=== PATIENT | male | born 1945 | race Caucasian/White ===

== ENCOUNTER → 2017-03-11 | Outpatient (CLI) | payer MEDICARE, OTHER ==
[~2017-03-11] MED LIST: ASPI-556 PO; ATOR10TA69 PO; LEVO100T4 PO; LORA1TAB3 PO; SYMB8060 IH; TAMS0.4C32 PO; TRAM50TA4 PO
== END | disposition home or self-care (01) ==
LOC: RADPV 13:57
PROVIDERS: ATTEND General Practice
DX: R10.11 Right upper quadrant pain (principal); R10.13 Epigastric pain
CPT/HCPCS: 76700

== ENCOUNTER → 2018-05-04 | Outpatient (CLI) | payer MEDICARE, OTHER | END | disposition home or self-care (01) | LOC: RADMN 12:35 | PROVIDERS: ATTEND General Practice | DX: I67.82 Cerebral ischemia (principal); J34.1 Cyst and mucocele of nose and nasal sinus; H91.92 Unspecified hearing loss, left ear | CPT/HCPCS: 70551 ==

== ENCOUNTER 2018-07-05 15:37 | Emergency (ER) | payer MEDICARE, OTHER ==
[~2018-07-05] VITALS: Ht 167.6 cm; Wt 77.7 kg
[2018-07-05] MEDS: FLUTICASONE PROPIONATE 50 MCG/SPRAY 16 GM NASAL SPRAY NASAL ONE (19:01)
[2018-07-05] MEDS: LORATADINE 10 MG TABLET PO ONE (19:01)
[2018-07-05] MEDS: BENZONATATE 100 MG CAPSULE PO ONE (19:01)
[2018-07-05] MEDS: BENZOCAINE/MENTHOL LOZENGE PO ONE (19:01)
[2018-07-05] MEDS: NEOMYCIN/POLYMYXIN B/HYDROCORT 10 ML OTIC SOLUTION AU ONE (19:02)
[2018-07-05 20:00] VITALS: BP 130/88
== END 2018-07-05 20:29 | disposition home or self-care (01) ==
LOC: EMS 15:38
DX: J06.9 Acute upper respiratory infection, unspecified (principal); J30.9 Allergic rhinitis, unspecified; H60.93 Unspecified otitis externa, bilateral; J45.909 Unspecified asthma, uncomplicated; K21.9 Gastro-esophageal reflux disease without esophagitis; I10 Essential (primary) hypertension; E78.00 Pure hypercholesterolemia, unspecified; F41.9 Anxiety disorder, unspecified; M19.90 Unspecified osteoarthritis, unspecified site; Z87.891 Personal history of nicotine dependence; Z88.0 Allergy status to penicillin; Z88.5 Allergy status to narcotic agent; Z79.82 Long term (current) use of aspirin

== ENCOUNTER 2018-07-07 15:55 | Emergency (ER) | payer MEDICARE, OTHER | END 2018-07-07 16:22 | disposition left against medical advice (07) | LOC: EMS 15:57 | DX: Z53.21 Procedure and treatment not carried out due to patient leaving prior to being seen by health care provider (principal) ==

== ENCOUNTER → 2018-09-13 | Outpatient (CLI) | payer MEDICARE, OTHER ==
[~2018-09-13] MED LIST changes: +IOVERSOL 320 MG/ML 100 ML VIAL ONE; +SODIUM CHLORIDE 0.9% 100 ML ONE
== END | disposition home or self-care (01) ==
LOC: RADMN 12:58
PROVIDERS: ATTEND General Practice
DX: J43.8 Other emphysema (principal); J40 Bronchitis, not specified as acute or chronic; J98.4 Other disorders of lung
CPT/HCPCS: 71260; J7050; Q9967

== ENCOUNTER 2018-12-12 22:43 | Emergency (ER) | payer MEDICARE, OTHER ==
[~2018-12-12] VITALS: Ht 165.1 cm; Wt 81.8 kg
[~2018-12-12 22:43] MED LIST changes: -IOVERSOL 320 MG/ML 100 ML VIAL ONE; -SODIUM CHLORIDE 0.9% 100 ML ONE
[2018-12-13 03:00] VITALS: BP 130/75
[2018-12-13] MEDS ORDERED: KETOROLAC TROMETHAMINE 30 MG/ML VIAL IM ONE (03:15)
== END 2018-12-13 04:01 | disposition home or self-care (01) ==
LOC: EMS 22:43
DX: S43.101A Unspecified dislocation of right acromioclavicular joint, initial encounter (principal); F41.9 Anxiety disorder, unspecified; J45.909 Unspecified asthma, uncomplicated; K21.9 Gastro-esophageal reflux disease without esophagitis; E78.00 Pure hypercholesterolemia, unspecified; I10 Essential (primary) hypertension; Z87.891 Personal history of nicotine dependence; Z88.0 Allergy status to penicillin; Z88.5 Allergy status to narcotic agent; Z79.82 Long term (current) use of aspirin; W19.XXXA Unspecified fall, initial encounter; Y93.89 Activity, other specified; Y92.89 Other specified places as the place of occurrence of the external cause; Y99.8 Other external cause status
CPT/HCPCS: 73030; 96372; 99283; J1885

== ENCOUNTER → 2020-12-31 | Outpatient (CLI) | payer MEDICARE, OTHER ==
[~2020-12-31] MED LIST changes: +IOHEXOL 350 MG/ML 100 ML VIAL ONE; +SODIUM CHLORIDE 0.9% 100 ML ONE; +TAMS-13 PO; -TAMS0.4C32 PO
== END | disposition home or self-care (01) ==
LOC: RADMN 08:39
PROVIDERS: ATTEND General Practice
DX: K57.30 Diverticulosis of large intestine without perforation or abscess without bleeding (principal); K40.90 Unilateral inguinal hernia, without obstruction or gangrene, not specified as recurrent; K44.9 Diaphragmatic hernia without obstruction or gangrene; I51.7 Cardiomegaly; I25.10 Atherosclerotic heart disease of native coronary artery without angina pectoris; N32.3 Diverticulum of bladder; J43.8 Other emphysema; J98.4 Other disorders of lung; N28.1 Cyst of kidney, acquired; I70.0 Atherosclerosis of aorta; N40.0 Benign prostatic hyperplasia without lower urinary tract symptoms; M50.321 Other cervical disc degeneration at C4-C5 level; M47.812 Spondylosis without myelopathy or radiculopathy, cervical region; M46.02 Spinal enthesopathy, cervical region; M51.34 Other intervertebral disc degeneration, thoracic region; M51.37 Other intervertebral disc degeneration, lumbosacral region; J92.9 Pleural plaque without asbestos
CPT/HCPCS: 71260; 72040; 72072; 72100; 72193; 74160; J7050; Q9967

== ENCOUNTER → 2021-09-24 | Outpatient (CLI) | payer MEDICARE, MEDICAID ==
[~2021-09-24] MED LIST changes: -IOHEXOL 350 MG/ML 100 ML VIAL ONE; -SODIUM CHLORIDE 0.9% 100 ML ONE
== END | disposition home or self-care (01) ==
LOC: RADPV 09:16
PROVIDERS: ATTEND General Practice
DX: K80.20 Calculus of gallbladder without cholecystitis without obstruction (principal); K83.8 Other specified diseases of biliary tract; R10.10 Upper abdominal pain, unspecified
CPT/HCPCS: 76700

== ENCOUNTER → 2021-10-28 | Outpatient (CLI) | payer MEDICARE, MEDICAID ==
[~2021-10-28] MED LIST changes: +BARIUM SULFATE 0.1% SUSPENSION 450 ML BOTTLE ONE; +IOHEXOL 350 MG/ML 150 ML VIAL ONE; +SODIUM CHLORIDE 0.9% 100 ML ONE
== END | disposition home or self-care (01) ==
LOC: RADMN 08:57
PROVIDERS: ATTEND General Practice
DX: N32.3 Diverticulum of bladder (principal); K57.30 Diverticulosis of large intestine without perforation or abscess without bleeding; K40.90 Unilateral inguinal hernia, without obstruction or gangrene, not specified as recurrent; N43.3 Hydrocele, unspecified; J43.9 Emphysema, unspecified; J47.9 Bronchiectasis, uncomplicated; K44.9 Diaphragmatic hernia without obstruction or gangrene; R91.8 Other nonspecific abnormal finding of lung field; R59.0 Localized enlarged lymph nodes; M47.814 Spondylosis without myelopathy or radiculopathy, thoracic region; R10.9 Unspecified abdominal pain; K80.20 Calculus of gallbladder without cholecystitis without obstruction
CPT/HCPCS: 71260; 74160; 72193; Q9967; J7050

== ENCOUNTER 2022-02-27 15:09 | Emergency (ER) | payer MEDICARE, OTHER ==
[~2022-02-27] VITALS: Ht 160 cm; Wt 81.8 kg
[~2022-02-27 15:09] MED LIST changes: -BARIUM SULFATE 0.1% SUSPENSION 450 ML BOTTLE ONE; -IOHEXOL 350 MG/ML 150 ML VIAL ONE; -SODIUM CHLORIDE 0.9% 100 ML ONE
[2022-02-27 15:24] VITALS: BP 141/91
[2022-02-27] MEDS ORDERED: PRED-554 PO (19:52)
[2022-02-27] MEDS ORDERED: BENZ-70 PO (19:52)
== END 2022-02-27 17:04 | disposition left against medical advice (07) ==
LOC: EMS 15:22
DX: Z53.21 Procedure and treatment not carried out due to patient leaving prior to being seen by health care provider (principal)

== ENCOUNTER 2022-02-27 17:11 | Emergency (ER) | payer MEDICARE, OTHER ==
[~2022-02-27] VITALS: Ht 165.1 cm; Wt 81.8 kg
[2022-02-27 18:30] LABS: COVID AG,FIA SOURCE NASOPHARYNGEAL
[2022-02-27 18:46] LABS: RAPID GROUP A STREP NEGATIVE (NEGATIVE)
[2022-02-27 18:52] LABS: INFLUENZA TYPE A NEGATIVE FOR TYPE A (NEGATIVE); INFLUENZA TYPE B NEGATIVE FOR TYPE B (NEGATIVE)
[2022-02-27] MEDS ORDERED: PRED-554 PO (19:52)
[2022-02-27] MEDS ORDERED: BENZ-70 PO (19:52)
[2022-02-27] MEDS ORDERED: IPRATROPIUM BROMIDE 0.5 MG/2.5 ML NEB SOLUTION NEB ONE (20:00)
[2022-02-27] MEDS ORDERED: ALBUTEROL SULFATE 2.5 MG/0.5 ML NEB SOLUTION NEB ONE (20:00)
[2022-02-27] MEDS ORDERED: PredniSONE 20 MG TABLET PO ONE (20:00)
[2022-02-27 20:30] VITALS: BP 132/87
== END 2022-02-27 22:25 | disposition home or self-care (01) ==
LOC: EMS 20:11
DX: J45.901 Unspecified asthma with (acute) exacerbation (principal); Z20.822 Contact with and (suspected) exposure to COVID-19; B34.9 Viral infection, unspecified; E78.00 Pure hypercholesterolemia, unspecified; F41.9 Anxiety disorder, unspecified; I10 Essential (primary) hypertension; K21.9 Gastro-esophageal reflux disease without esophagitis; N41.9 Inflammatory disease of prostate, unspecified; N40.0 Benign prostatic hyperplasia without lower urinary tract symptoms; R06.02 Shortness of breath; Z87.81 Personal history of (healed) traumatic fracture; Z88.0 Allergy status to penicillin
CPT/HCPCS: 99284; 71045; 87426; 87430; 87804; 94640; J7512; C9803; J7613

== ENCOUNTER 2022-05-11 11:55 | Emergency (ER) | payer MEDICARE, OTHER ==
[~2022-05-11] VITALS: Ht 162.6 cm; Wt 79.5 kg
[~2022-05-11 11:55] MED LIST changes: +BENZ-227 PO; +PRED-554 PO
[2022-05-11] MEDS ORDERED: DOXY-354 PO (14:40)
[2022-05-11 16:01] VITALS: BP 148/80
== END 2022-05-11 16:04 | disposition home or self-care (01) ==
LOC: EMS 12:24
DX: H66.91 Otitis media, unspecified, right ear (principal); F41.9 Anxiety disorder, unspecified; J45.909 Unspecified asthma, uncomplicated; E78.00 Pure hypercholesterolemia, unspecified; I10 Essential (primary) hypertension; M19.90 Unspecified osteoarthritis, unspecified site; N40.0 Benign prostatic hyperplasia without lower urinary tract symptoms; Z87.891 Personal history of nicotine dependence; Z98.890 Other specified postprocedural states; Z88.0 Allergy status to penicillin; Z88.5 Allergy status to narcotic agent
CPT/HCPCS: 99283

== ENCOUNTER → 2022-11-18 | Outpatient (CLI) | payer MEDICARE, OTHER ==
[~2022-11-18] MED LIST changes: +DOXY-354 PO
== END | disposition still patient (30) ==
LOC: RADMN 14:14
PROVIDERS: ATTEND General Practice
DX: M47.814 Spondylosis without myelopathy or radiculopathy, thoracic region (principal); R05.9 Cough, unspecified; M50.31 Other cervical disc degeneration, high cervical region; M47.817 Spondylosis without myelopathy or radiculopathy, lumbosacral region; M51.37 Other intervertebral disc degeneration, lumbosacral region; J92.9 Pleural plaque without asbestos
CPT/HCPCS: 71046; 72040; 72072; 72100

== ENCOUNTER 2022-12-29 13:01 | Emergency (ER) | payer MEDICARE, OTHER ==
[~2022-12-29] VITALS: Ht 165.1 cm; Wt 77.3 kg
[~2022-12-29 13:01] MED LIST changes: -TAMS-13 PO; +TAMS0.4C34 PO
[2022-12-29 13:06] VITALS: BP 143/79; PULSE 82; RESP 18; TEMP 97.9
[2022-12-29] MEDS ORDERED: BACITRACIN 0.9 GM PACKET OINTMENT TP ONE (15:00)
[2022-12-29] MEDS ORDERED: HYDROGEN PEROXIDE 118 ML SOLUTION TP ONE (15:00)
[2022-12-29] MEDS ORDERED: DUTA0.5C38 PO (15:04)
[2022-12-29] MEDS ORDERED: ALBU18HF7 IH (15:04)
[2022-12-29] MEDS ORDERED: ESCI-8 PO (15:04)
[2022-12-29] MEDS ORDERED: FAMO20 PO (15:04)
[2022-12-29] MEDS ORDERED: ATOR40TA71 PO (15:04)
[2022-12-29] MEDS ORDERED: FLUT16SP NASAL (15:04)
[2022-12-29] MEDS ORDERED: LEVO25TA9 PO (15:04)
[2022-12-29] MEDS ORDERED: ATEN-73 PO (15:04)
[2022-12-29] MEDS ORDERED: TRAM-559 PO (15:04)
[2022-12-29] MEDS ORDERED: CHOL200074 PO (15:04)
[2022-12-29] MEDS ORDERED: POLY510P31 PO (15:04)
[2022-12-29] MEDS ORDERED: FLUT1BLS3 IH (15:04)
[2022-12-29] MEDS ORDERED: BACI28.410 TP (15:43)
== END 2022-12-29 15:50 | disposition home or self-care (01) ==
LOC: EMS 13:04
DX: S51.051A Open bite, right elbow, initial encounter (principal); F41.9 Anxiety disorder, unspecified; M19.90 Unspecified osteoarthritis, unspecified site; J45.909 Unspecified asthma, uncomplicated; E78.00 Pure hypercholesterolemia, unspecified; I10 Essential (primary) hypertension; N40.0 Benign prostatic hyperplasia without lower urinary tract symptoms; Z87.891 Personal history of nicotine dependence; Z98.890 Other specified postprocedural states; Z88.0 Allergy status to penicillin; Z88.5 Allergy status to narcotic agent; W54.0XXA Bitten by dog, initial encounter; Y93.89 Activity, other specified; Y92.89 Other specified places as the place of occurrence of the external cause; Y99.8 Other external cause status
CPT/HCPCS: 82962; 99283

== ENCOUNTER 2023-02-12 11:29 | Emergency (ER) | payer MEDICARE, OTHER ==
[~2023-02-12] VITALS: Ht 167.6 cm; Wt 80.9 kg
[2023-02-12 11:33] VITALS: BP 132/75; PULSE 78; RESP 16; TEMP 98.3
[2023-02-12] MEDS ORDERED: BACI28.410 TP (11:56)
[2023-02-12] MEDS ORDERED: BACITRACIN 28 GM OINTMENT TP ONE (12:00)
[2023-02-12] MEDS ORDERED: PERTUSS(ACELL),DIPH,TET VAC/PF 0.5 ML SYRINGE IM. ONE (12:00)
== END 2023-02-12 12:48 | disposition home or self-care (01) ==
LOC: EMS 11:44
DX: S61.411A Laceration without foreign body of right hand, initial encounter (principal); F41.9 Anxiety disorder, unspecified; M19.90 Unspecified osteoarthritis, unspecified site; J45.909 Unspecified asthma, uncomplicated; E78.00 Pure hypercholesterolemia, unspecified; I10 Essential (primary) hypertension; N40.0 Benign prostatic hyperplasia without lower urinary tract symptoms; Z87.891 Personal history of nicotine dependence; Z88.0 Allergy status to penicillin; Z88.5 Allergy status to narcotic agent; Z98.890 Other specified postprocedural states; W06.XXXA Fall from bed, initial encounter; Y93.89 Activity, other specified; Y92.89 Other specified places as the place of occurrence of the external cause; Y99.8 Other external cause status
CPT/HCPCS: 90471; 90715; 99283

== ENCOUNTER → 2023-02-12 | Outpatient (CLI) | payer MEDICARE, OTHER ==
[~2023-02-12] MED LIST changes: +ALBU18HF7 IH; -ASPI-556 PO; +ATEN-73 PO; -ATOR10TA69 PO; +ATOR40TA71 PO; +BACI28.410 TP; -BENZ-227 PO; +CHOL200074 PO; -DOXY-354 PO; +DUTA0.5C38 PO; +ESCI-8 PO; +FAMO20 PO; +FLUT16SP NASAL; +FLUT1BLS3 IH; -LEVO100T4 PO; +LEVO25TA9 PO; -LORA1TAB3 PO; +POLY510P31 PO; -PRED-554 PO; -SYMB8060 IH; -TAMS0.4C34 PO; +TRAM-559 PO; -TRAM50TA4 PO
== END | disposition home or self-care (01) ==
LOC: RADPV 10:46
PROVIDERS: ATTEND General Practice
DX: R10.11 Right upper quadrant pain (principal)
CPT/HCPCS: 76700